=== PATIENT | female | born 1990 | race Caucasian/White ===

== ENCOUNTER 2017-03-26 20:52 | Emergency (ER) | payer OTHER ==
[2017-03-26 23:04] VITALS: BP 133/82
== END 2017-03-26 23:04 | disposition home or self-care (01) ==
LOC: ED 20:52
DX: O26.891 Other specified pregnancy related conditions, first trimester (principal); G44.209 Tension-type headache, unspecified, not intractable; Z3A.10 10 weeks gestation of pregnancy